=== PATIENT | female | born 1965 | race Caucasian/White ===

== ENCOUNTER 2016-09-21 10:29 | Emergency (ER) | payer OTHER ==
[~2016-09-21] VITALS: Ht 152.4 cm; Wt 72.7 kg
[~2016-09-21 10:29] MED LIST: ACET100D8 PO; ASPI-556; GLIM2 PO; HYDR25TA PO; LISI-618 PO; LOVA20 PO; METF500T4 PO
[2016-09-21] MEDS ORDERED: PIOG30TA2 PO (10:45)
[2016-09-21] MEDS ORDERED: METF850T2 PO (10:45)
[2016-09-21] MEDS ORDERED: OMEP20 PO (10:45)
[2016-09-21] MEDS ORDERED: ATOR40TA28 PO (10:45)
[2016-09-21] MEDS ORDERED: GLIP5 PO (10:45)
[2016-09-21 10:47] LABS: GLUCOSE,POINT OF CARE 177 MG/DL (70-110)
[2016-09-21 11:59] LABS: BASOPHILS % (AUTO) 0.3 % (0.0-2.0); EOSINOPHILS % (AUTO) 0.8 % (1.0-6.0); HEMATOCRIT 45.7 % (36-46); LYMPHOCYTES # (AUTO) 2.2 K/uL (1.0-4.8); LYMPHOCYTES % (AUTO) 26.9 % (22.0-44.0); MEAN CORPUSCULAR HEMOGLOBIN 26.8 pg (26.0-34.0); MEAN CORPUSCULAR HGB CONC 32.8 G/dL (31.0-37.0); MEAN CORPUSCULAR VOLUME 82 fL (80-100); MONOCYTES # (AUTO) 0.5 K/uL (0.1-1.0); MONOCYTES % (AUTO) 5.6 % (2.0-9.0); NEUTROPHILS # (AUTO) 5.5 K/uL (1.8-7.7); NEUTROPHILS % (AUTO) 66.4 % (40.0-70.0); PLATELET COUNT (AUTO) 230 K/uL (150-450); RED BLOOD CELL COUNT(AUTO) 5.58 MIL/uL (4.00-5.20); RED CELL DISTRIBUTION WIDTH 14.9 % (11.5-14.5); WHITE BLOOD COUNT (AUTO) 8.3 K/uL (4.5-11.0)
[2016-09-21 12:19] LABS: ANION GAP 8 mmol/L (8-16); CALCIUM, TOTAL 8.9 mg/dL (8.8-10.5); CARBON DIOXIDE 28 mmol/L (22-29); CHLORIDE 104 mmol/L (98-107); CREATININE 0.65 mg/dL (0.60-1.30); GLOMERULAR FILTR. RATE CALC > 60 mL/min (>60); SODIUM SERUM 140 mmol/L (136-145); UREA NITROGEN, BLOOD 12 mg/dL (7-18)
[2016-09-21 12:21] LABS: ALANINE AMINOTRANSFERASE 24 U/L (12-78); ALBUMIN 3.6 g/dL (3.4-5.0); ASPARTATE AMINOTRANSFERASE 14 U/L (15-37); BILIRUBIN,TOTAL 0.3 mg/dL (0.1-1.0); TOTAL PROTEIN, SERUM 7.4 g/dL (6.4-8.2)
[2016-09-21 13:10] VITALS: BP 132/84
[2016-09-21 14:10] LABS: APPEARANCE,URINE CLEAR (CLEAR); GLUCOSE, URINE (UA) NEGATIVE (NEGATIVE); OCCULT BLOOD,URINE NEGATIVE (NEGATIVE); PH,URINE 5.5 (5.0-8.0); PROTEIN,URINE NEGATIVE (NEGATIVE)
[2016-09-21 14:11] LABS: ADD UA MICROSCOPIC NO; KETONES,URINE NEGATIVE (NEGATIVE); LEUKOCYTE ESTERASE ,URINE NEGATIVE (NEGATIVE)
== END 2016-09-21 15:33 | disposition home or self-care (01) ==
LOC: EMS 10:31
DX: R10.9 Unspecified abdominal pain (principal); M54.6 Pain in thoracic spine; E11.9 Type 2 diabetes mellitus without complications; I10 Essential (primary) hypertension; E78.00 Pure hypercholesterolemia, unspecified; K21.9 Gastro-esophageal reflux disease without esophagitis; Z79.82 Long term (current) use of aspirin
CPT/HCPCS: 82962; 99284